=== PATIENT | male | born 1990 | race Caucasian/White ===

== ENCOUNTER 2024-11-05 08:29 | Emergency (ER) | payer OTHER, SELFPAY ==
[2024-11-05] VITALS (14 sets, daily range): BP systolic 121–152; BP diastolic 74–100; PULSE 52–58; TEMP 36.6; O2SAT 97–100; BMI 36.3
--- NOTE | 2024-11-05 08:39 | ECG_ITS ---
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 Measurements Intervals [place] Rate: 49 P: 36 NE: 158 QRS: 44 QRSD: 102 T: 31 QT: 448 QTc: 416 Interpretive Statements 1130 Sinus bradycardia 9140 abnormal rhythm ECG No previous ECG available for comparison Electronically Signed On 11-05-2024 19:59:21 EDT by SHANNAN CLIFTON M.D.
--- NOTE | 2024-11-05 08:43 | ED_ITS ---
HPI HPI - General Adult General Chief complaint: Dizziness Stated complaint: DIZZINESS, LIGHT HEADED, VISUAL DISTURBANCE AT [employer] Time Seen by Provider: 11/05/24 08:34 History of Present Illness HPI narrative: 34-year-old male presents to the emergency department for dizziness. The first episode was 2 days ago when he got up out of bed and he felt like he was off balance and was going to fall but he did not. This symptom had come on abruptly and then went away abruptly and did not recur yesterday. It happened twice today, once when he got up and then once when he was at work. He had similar symptoms, feeling off balance, as if he was going to fall over but he did not. No fever headache vomiting or localized weakness. This has never happened to him previously. Occasionally he will feel a fluttering in his chest but it is not associated with dizziness and he never gets the fluttering when he is dizzy. Related Data Home Medications ?Medication ?Instructions ?Recorded ?Confirmed No Known Home Medications 11/05/24 11/05/24 Previous Rx's ?Medication ?Instructions ?Recorded meclizine 25 mg tablet 25 mg PO TID PRN dizziness #20 tabs 11/05/24 Allergies Allergy/AdvReac Type Severity Reaction Status Date / Time No Known Drug Allergies Allergy Verified 11/05/24 08:35 Opioid HPI Opioid Management Most Recent Opioid Data: No Data to Display Review of Systems ROS Narrative A ten point review of systems is negative except as noted above. PFSH PFSH Social History Little interest or pleasure in doing things: not at all Feeling down, depressed, or hopeless: not at all Exam Narrative Exam Narrative: Nurses note and vital signs reviewed and patient is not hypoxic. General: The patient appears well and in no apparent distress. Patient is resting comfortably on cart. Skin: Warm, dry, no pallor noted. There is no rash noted. Head: Normocephalic, atraumatic Eye: Normal conjunctiva, no drainage Ears, Nose, Mouth, and Throat: oral mucosa is moist. Nares patent. Both TMs and external canals are normal in appearance Cardiovascular: Regular Rate and Rhythm Respiratory: Patient is in no distress, no accessory muscle use, lungs are clear to auscultation, no wheezing, rales or rhonchi Back: non-tender, no CVA tenderness bilaterally to percussion. GI: Soft and nontender Musculoskeletal: The patient has no evidence of calf tenderness, no pitting edema, symmetrical pulses noted bilaterally Neurological: A&O, normal speech; upper and lower extremity strength 5 out of 5 and symmetric Psychiatric: Cooperative Constitutional Vital Signs, click to edit/add: Last Vital Signs Temp 97.8 F 11/05/24 08:35 Pulse 58 L 11/05/24 09:31 Resp 16 11/05/24 09:31 BP 121/75 11/05/24 09:31 Pulse Ox 98 11/05/24 09:31 O2 Del Method Room Air 11/05/24 09:04 Course Vital Signs Vital signs: Vital Signs Temperature 97.8 F 11/05/24 08:35 Pulse Rate 56 L 11/05/24 08:35 Respiratory Rate 20 11/05/24 08:35 Blood Pressure 152/100 H 11/05/24 08:35 Pulse Oximetry 100 11/05/24 08:35 Temperature 97.8 F 11/05/24 08:35 Pulse Rate 58 L 11/05/24 09:31 Respiratory Rate 16 11/05/24 09:31 Blood Pressure 121/75 11/05/24 09:31 Pulse Oximetry 98 11/05/24 09:31 Oxygen Delivery Method Room Air 11/05/24 09:04 Medical Decision Making MDM Narrative Medical decision making narrative: His workup including CT brain is negative. He was given a dose of Antivert here and prescribed Antivert. He will follow-up with his physician if symptoms do not resolve. Treatment diagnosis and follow-up were discussed with the patient. Differential Diagnosis Differential Diagnosis: Labyrinthitis, anemia, acute kidney injury, dysrhythmia Lab Data Lab results reviewed: Yes I reviewed the patient's lab results Labs: Lab Results 11/05/24 Range/Units 08:45 WBC 11.9 H (4.0-11.0) 10^3/uL RBC 4.80 (4.70-6.10) 10^6/uL Hgb 14.2 (14.0-18.0) g/dL Hct 42.1 (42.0-54.0) % MCV 87.7 (80.0-94.0) fL MCH 29.6 (25.9-34.0) pg MCHC 33.7 (29.9-35.2) g/dL RDW 12.7 (11.0-15.0) % Plt Count 292 (150-450) 10^3/uL MPV 10.5 (9.5-13.5) fL Neut % (Auto) 68.1 (43.0-75.0) % Lymph % (Auto) 21.0 (20.5-60.0) % [place] % (Auto) 8.5 (1.7-12.0) % Eos % (Auto) 1.3 (0.9-7.0) % Baso % (Auto) 0.7 (0.2-2.0) % Neut # (Auto) 8.1 H (1.4-6.5) 10^3/uL Lymph # (Auto) 2.5 (1.2-3.8) 10^3/uL [place] # (Auto) 1.0 H (0.3-0.8) 10^3/uL Eos # (Auto) 0.2 (0.0-0.7) 10^3/uL Baso # (Auto) 0.1 (0.0-0.1) 10^3/uL Abs Immat Gran (auto) 0.05 H (0.00-0.03) 10^3/uL Imm/Tot Granulo (auto) 0.4 (0.0-0.5) % Sodium 137 (136-145) mmol/L Potassium 4.1 (3.5-5.1) mmol/L Chloride 103 (98-107) mmol/L Carbon Dioxide 27.6 (21.0-32.0) mmol/L Anion Gap 10.5 BUN 10.0 (7.0-18.0) mg/dL Creatinine 0.93 (0.70-1.30) mg/dL Est GFR ( Amer) >60 (>=60 mL/min/1.73m^2) Est GFR (Non-Af Amer) >60 (>=60 mL/min/1.73m^2) BUN/Creatinine Ratio 10.8 Glucose 102 (74-106) mg/dL Calcium 8.8 (8.5-10.1) mg/dL Imaging Data CT brain: Radiologist's impression: No acute findings ECG Data Attestation: I personally reviewed and interpreted this ECG as follows: (EKG on my interpretation shows sinus rhythm with a rate of 49 and no acute change) Discharge Plan Discharge Chief Complaint: Dizziness Clinical Impression: Benign paroxysmal positional vertigo Patient Disposition: Home, Self-Care Time of Disposition Decision: 09:53 Condition: Good Mode of Transportation: Private Vehicle Prescriptions / Home Meds: New meclizine 25 mg tablet 25 mg PO TID PRN (Reason: dizziness) Qty: 20 0RF No Action No Known Home Medications Print Language: Malay Instructions: Benign Paroxysmal Positional Vertigo (ED) Referrals: Physician,Non-Staff, MD [Primary Care Provider] - 1 week
[2024-11-05] MEDS: MECLIZINE HCL 12.5 MG TABLET 25 MG PO (08:56)
[2024-11-05 09:05] LABS: Basophils Absolute Auto 0.1 10^3/uL (0.0-0.1); Basophils Percent Auto 0.7 % (0.2-2.0); Eosinophils Absolute Auto 0.2 10^3/uL (0.0-0.7); Eosinophils Percent Auto 1.3 % (0.9-7.0); Hematocrit 42.1 % (42.0-54.0); Hemoglobin 14.2 g/dL (14.0-18.0); Immature Granulocytes Abs Auto 0.05 10^3/uL (0.00-0.03); Immature Granulocytes Pct Auto 0.4 % (0.0-0.5); Lymphocytes Absolute Auto 2.5 10^3/uL (1.2-3.8); Mean Corpuscular HGB Conc 33.7 g/dL (29.9-35.2); Mean Corpuscular Hemoglobin 29.6 pg (25.9-34.0); Mean Corpuscular Volume 87.7 fL (80.0-94.0); Mean Platelet Volume 10.5 fL (9.5-13.5); Monocytes Percent Auto 8.5 % (1.7-12.0); Neutrophils Absolute Auto 8.1 10^3/uL (1.4-6.5); Neutrophils Percent Auto 68.1 % (43.0-75.0); Platelet Count 292 10^3/uL (150-450); Red Cell Distribution Width 12.7 % (11.0-15.0); White Blood Count 11.9 10^3/uL (4.0-11.0)
[2024-11-05 09:14] LABS: Anion Gap 10.5; BUN Creatinine Ratio 10.8; Calcium 8.8 mg/dL (8.5-10.1); Carbon Dioxide 27.6 mmol/L (21.0-32.0); Chloride 103 mmol/L (98-107); Estimated GFR (African America >60 (>=60 mL/min/1.73m^2); Estimated GFR (Non-African Ame >60 (>=60 mL/min/1.73m^2); Glucose 102 mg/dL (74-106); Potassium 4.1 mmol/L (3.5-5.1); Sodium 137 mmol/L (136-145)
== END 2024-11-05 10:00 | disposition home or self-care (01) ==
PROVIDERS: Emergency Provider Emergency Medicine
DX: H81.10 Benign paroxysmal vertigo, unspecified ear (principal)
CPT/HCPCS: 36415; 70450; 80048; 85025; 93005; 99285